=== PATIENT | female | born 1950 | race Caucasian/White ===

== ENCOUNTER 2019-12-20 02:31 | Emergency (ER) | payer OTHER ==
[~2019-12-20] VITALS: Ht 160 cm; Wt 76.7 kg
[2019-12-20 02:38] VITALS: Ht 160 cm; Wt 76.7 kg
[2019-12-20 03:38] LABS: CALCIUM 9.7 mg/dL (8.5-10.1); CARBON DIOXIDE 33.7 mmol/L (21-32); CHLORIDE SERUM 98 mmol/L (98-107); CREATININE SERUM 0.8 mg/dL (0.6-1.0); GFR1 > 60 mL/min; GLUCOSE SERUM 284 mg/dL (74-106); SODIUM SERUM 138 mmol/L (136-145)
[2019-12-20 03:39] LABS: PLATELET COUNT 227 x10^3mcL (130-400); RED CELL DISTRIBUTION WIDTH 12.3 % (11.5-14.5)
[2019-12-20 03:40] LABS: BASOPHIL % 0.2 % (0-2)
[2019-12-20 03:43] LABS: ALBUMIN 3.9 g/dL (3.4-5.0); ALKALINE PHOSPHATASE 88 U/L (46-116); ALT/SGPT 22 U/L (14-59); AST/SGOT 15 U/L (15-37); BILIRUBIN TOTAL 0.77 mg/dL (0.20-1.00); LIPASE 138 IU/L (73-393); TOTAL PROTEIN, SERUM 7.7 g/dL (6.4-8.2)
[2019-12-20 06:26] VITALS: BP 113/66
== END 2019-12-20 06:26 | disposition home or self-care (01) ==
LOC: ED 02:31
PROVIDERS: Student in an Organized Health Care Education/Training Program
DX: A05.8 Other specified bacterial foodborne intoxications (principal); K52.9 Noninfective gastroenteritis and colitis, unspecified; I10 Essential (primary) hypertension; E11.9 Type 2 diabetes mellitus without complications; Z88.0 Allergy status to penicillin; Z88.5 Allergy status to narcotic agent
CPT/HCPCS: J1885; J2405; J7030

== ENCOUNTER 2020-06-20 00:24 | Emergency (ER) | payer OTHER ==
[~2020-06-20] VITALS: Ht 160 cm; Wt 68.0 kg
[2020-06-20 01:58] LABS: BASOPHIL % 0.6 % (0-2); PLATELET COUNT 193 x10^3mcL (130-400); RED CELL DISTRIBUTION WIDTH 12.3 % (11.5-14.5)
[2020-06-20 02:20] LABS: CALCIUM 8.6 mg/dL (8.5-10.1); CARBON DIOXIDE 31.7 mmol/L (21-32); CHLORIDE SERUM 103 mmol/L (98-107); CREATININE SERUM 0.9 mg/dL (0.6-1.0); GFR1 > 60 mL/min; GLUCOSE SERUM 180 mg/dL (74-106); POTASSIUM SERUM 4.7 mmol/L (3.5-5.1); SODIUM SERUM 138 mmol/L (136-145)
[2020-06-20 02:24] LABS: ALBUMIN 3.7 g/dL (3.4-5.0); ALKALINE PHOSPHATASE 89 U/L (46-116); ALT/SGPT 20 U/L (14-59); AST/SGOT 19 U/L (15-37); BILIRUBIN TOTAL 0.46 mg/dL (0.20-1.00); LIPASE 214 IU/L (73-393); TOTAL PROTEIN, SERUM 7.2 g/dL (6.4-8.2)
[2020-06-20 02:58] LABS: UA SPECIFIC GRAVITY 1.025 (1.005-1.035); microscopic required? YES; urine erythrocyte TRACE (NEGATIVE)
[2020-06-20 04:01] VITALS: BP 144/77
== END 2020-06-20 04:01 | disposition home or self-care (01) ==
LOC: ED 00:24
PROVIDERS: Student in an Organized Health Care Education/Training Program
DX: K59.00 Constipation, unspecified (principal); N39.0 Urinary tract infection, site not specified; I10 Essential (primary) hypertension; E78.5 Hyperlipidemia, unspecified; E11.9 Type 2 diabetes mellitus without complications; Z88.0 Allergy status to penicillin; Z88.5 Allergy status to narcotic agent
CPT/HCPCS: J1885